=== PATIENT | female | born 1985 | race African-American/Black ===

== ENCOUNTER 2016-05-31 16:33 | Emergency (ER) | payer OTHER ==
[~2016-05-31] VITALS: Ht 170.2 cm; Wt 95.0 kg
[~2016-05-31 16:33] MED LIST: ALPR.25 PO; ATEN25TA PO; PROM25TA5 PO; ZANT150T2 PO
[2016-05-31 16:35] VITALS: BP 134/70; PULSE 70; RESP 14; TEMP 98.3; O2SAT 99
--- NOTE | 2016-05-31 18:04 | PD ---
HPI Chief Complaint: Pain: Acute or Chronic Time Seen by Provider: 18:04 Travel History International Travel<30 days: No Contact w/Intl Traveler<30days: No Traveled to known affect area: No History of Present Illness HPI 30-year-old female presents to the emergency department for evaluation of left ankle pain is been ongoing for 2 months. She denies any traumatic injury, but states she runs a lot. She states she saw her primary care physician who gave her ibuprofen and an ultrasound of her Achilles tendon. She was told she had small tears in her Achilles tendon and to follow-up with orthopedist. However, she has not yet followed up with an orthopedist. The patient denies any new or recent injury. No fevers or chills. She states that the pain has been worsening over the past 2 months. PFSH Past Medical History Heart Rhythm Problems: Yes (SVT X 2 YRS) Cardiovascular Problems: Yes (HTN) Hypertension: Yes Thyroid Disease: Yes (Hyperthyroidism) ?: Not LMP: CURRENTLY ON : 2 Para: 3 Tubal Ligation: Yes Past Surgical History Section: Yes (X 2) Social History Alcohol Use: Yes (Occasionally) Tobacco Use: Yes (2 PER WEEK) Substance Use: No Allergies-Medications (Allergen,Severity, Reaction): Coded Allergies: No Known Allergies (Unverified , 05/31/16) Reported Meds & Prescriptions Reported Meds & Active Scripts Active Phenergan (Promethazine HCl) 25 Mg Tab 25 Mg PO Q6H PRN Zantac (Ranitidine HCl) 150 Mg Tab 150 Mg PO BID Reported Xanax (Alprazolam) 0.25 Mg Tab 0.25 Mg PO Q6H PRN Atenolol 25 Mg Tab 25 Mg PO DAILY Review of Systems Except as stated in HPI: all other systems reviewed are Neg Physical Exam Narrative GENERAL: Well-developed well-nourished female patient, ambulatory. Afebrile. SKIN: Warm and dry. HEAD: Normocephalic. Atraumatic. EYES: No scleral icterus. No injection or drainage. NECK: Supple, trachea midline. No JVD or lymphadenopathy. CARDIOVASCULAR: Regular rate and rhythm without murmurs, gallops, or rubs. Left pedal pulse 2+. RESPIRATORY: Breath sounds equal bilaterally. No accessory muscle use. Lungs sounds clear to auscultation. GASTROINTESTINAL: Abdomen soft, non-tender, nondistended. MUSCULOSKELETAL: No cyanosis, or edema. Patient has tenderness over left posterior ankle. There is no evidence of Achilles tendon rupture. Freeman's test is negative. No other tenderness over ankle or foot. BACK: Nontender without obvious deformity. No CVA tenderness. Data Data Last Documented VS Vital Signs Date Time Temp Pulse Resp B/P Pulse Ox O2 Delivery O2 Flow Rate FiO2 05/31/16 16:35 98.3 70 14 134/70 99 Orders Splint Or Brace Apply/Monitor (05/31/16 18:03) Crutches (05/31/16 18:03) MDM Medical Decision Making Medical Screen Exam Complete: Yes Emergency Medical Condition: Yes Medical Record Reviewed: Yes Differential Diagnosis Achilles tendon tear versus sprain versus fracture Narrative Course 30-year-old female presents to the emergency department for evaluation of left ankle pain for 2 months. She was told that she had some small tears by her primary care physician she needed to follow-up with orthopedist. However, she has not yet followed up with an orthopedist. She denies any new symptoms. There is no evidence of Achilles tendon rupture and Freeman's test is negative. I provided the patient with an Justino bandage and crutches. I structurally to follow-up with orthopedist. I'll give her the name and number of our orthopedist supervisor blood donor recruiters. I will discharge her with a prescription for diclofenac. She is to return for any acute worsening of symptoms. The patient was discharged in stable condition with instructions, including return instructions and follow up instructions. Diagnosis Primary Impression: Ankle pain, left Qualified Code: M25.572 - Acute left ankle pain Referrals: Dhaval Dobson MD call for appointment Patient Instructions: Ankle Sprain (ED), General Instructions Additional Instructions: Wear Justino bandage and use crutches as needed for support. Take diclofenac as directed as needed with food for pain. Do not take with other anti-inflammatories including ibuprofen and naproxen. Ice for 20 minutes 4-5 times daily. Follow-up with an orthopedist. Dr. Dobson is our orthopedist on-call today. Return to the emergency department for any acute worsening of symptoms. Med/Other Pt SpecificInfo: Prescription(s) given Scripts Diclofenac Potassium 50 Mg Tab50 Mg PO TID PRN (PAIN SCALE 1 TO 10) #21 TAB Ref 0 Prov:Nanda Branch 05/31/16 Disposition: 01 DISCHARGE HOME Condition: Stable Nanda Branch May 31, 2016 18:04
[2016-05-31] MEDS ORDERED: DICL50TA PO (18:17)
== END 2016-05-31 19:06 | disposition home or self-care (01) ==
LOC: NEPB 16:33
DX: M25.572 Pain in left ankle and joints of left foot (principal); I10 Essential (primary) hypertension
CPT/HCPCS: 99283; E0113

== ENCOUNTER 2016-09-02 03:21 | Emergency (ER) | payer OTHER ==
[~2016-09-02] VITALS: Ht 172.7 cm; Wt 95.0 kg
[~2016-09-02 03:21] MED LIST changes: +DICL50TA PO
[2016-09-02] MEDS ORDERED: SODIUM CHLORIDE 0.9% FLUSH 10 ML FLUSH IVF PRN (03:30)
[2016-09-02 03:37] VITALS: BP 136/65; PULSE 101; RESP 16; TEMP 99.2; O2SAT 100
--- NOTE | 2016-09-02 03:45 | PD ---
HPI Chief Complaint: Cardiac Complaint Time Seen by Provider: 03:39 Travel History International Travel<30 days: No Contact w/Intl Traveler<30days: No Traveled to known affect area: No History of Present Illness HPI Patient's 30-year-old female presents emergency department for evaluation of palpitations. Patient states it started 3 hours prior to arrival, she had several episodes lasting 5 minutes in duration and then resolving and returning. She denies any shortness of breath but states she had chest pressure when the palpitations were occurring. She denies any chest pain or pressure at this time. She denies any nausea, vomiting, headache, dysuria, abdominal pain. She denies any caffeine intake, she did have some alcohol this afternoon. Patient has a history of SVT, she is currently on atenolol 25 mg daily. Her past medical history is also significant for hypertension. She denies any tobacco use or illicit drug use. She also reports a distant thyroid disorder stating that her thyroid was overactive. She is not on any medications currently and does not know if her thyroid has been evaluated recently. PFSH Past Medical History Heart Rhythm Problems: Yes (SVT X 2 YRS) Hypertension: Yes Thyroid Disease: Yes (Hyperthyroidism) : 2 Para: 3 Tubal Ligation: Yes Past Surgical History Section: Yes (X 2) Other Surgery: Yes (bilateral tubal ligation) Social History Alcohol Use: Yes (Occasionally) Tobacco Use: Yes (2 PER WEEK) Substance Use: No Allergies-Medications (Allergen,Severity, Reaction): Coded Allergies: No Known Allergies (Unverified , 09/02/16) Reported Meds & Prescriptions Reported Meds & Active Scripts Active Reported Xanax (Alprazolam) 0.25 Mg Tab 0.25 Mg PO Q6H PRN Atenolol 25 Mg Tab 25 Mg PO DAILY Review of Systems Except as stated in HPI: all other systems reviewed are Neg General / Constitutional: No: Fever Eyes: No: Blurred Vision HENT: No: Headaches, Lightheadedness Cardiovascular: Positive: Chest Pain or Discomfort, Palpitations Respiratory: No: Shortness of Breath Gastrointestinal: No: Nausea, Abdominal Pain Neurologic: No: Weakness, Dizziness, Syncope Physical Exam Narrative GENERAL: Well-developed, well-nourished, alert female. Resting comfortably in no acute distress. SKIN: Focused skin assessment warm/dry. HEAD: Atraumatic. Normocephalic. EYES: Pupils equal and round. No scleral icterus. No injection or drainage. ENT: No nasal bleeding or discharge. Mucous membranes pink and moist. NECK: Trachea midline. No JVD. CARDIOVASCULAR: Regular rate and rhythm. 1/6 systolic murmur appreciated. RESPIRATORY: No accessory muscle use. Clear to auscultation. Breath sounds equal bilaterally. GASTROINTESTINAL: Abdomen soft, non-tender, nondistended. Hepatic and splenic margins not palpable. MUSCULOSKELETAL: No obvious deformities. No clubbing. No cyanosis. No edema. NEUROLOGICAL: Awake and alert. No obvious cranial nerve deficits. Motor grossly within normal limits. Normal speech. PSYCHIATRIC: Appropriate mood and affect; insight and judgment normal. Data Data Last Documented VS Vital Signs Date Time Temp Pulse Resp B/P Pulse Ox O2 Delivery O2 Flow Rate FiO2 09/02/16 03:46 98 09/02/16 03:37 99.2 16 136/65 100 Room Air Orders Electrocardiogram (09/02/16 03:27) Ckmb (Isoenzyme) Profile (09/02/16 03:27) Complete Blood Count With Diff (09/02/16 03:27) Comprehensive Metabolic Panel (09/02/16 03:27) Magnesium (Mg) (09/02/16 03:27) Prothrombin Time / Inr (Pt) (09/02/16 03:27) Act Partial Throm Time (Ptt) (09/02/16 03:27) Troponin I (09/02/16 03:27) Chest, Single Ap (09/02/16 03:27) Ecg Monitoring (09/02/16 03:27) Iv Access Insert/Monitor (09/02/16 03:27) Oximetry (09/02/16 03:27) Oxygen Administration (09/02/16 03:27) Sodium Chloride 0.9% Flush (Ns Flush) (09/02/16 03:30) Thyroid Stimulating Hormone (09/02/16 03:27) Free Thyroxine (T4) (09/02/16 03:27) Ed Urine Pregnancytest Poc (09/02/16 03:30) CKMB (09/02/16 03:50) CKMB% (09/02/16 03:50) Labs Laboratory Tests Test 09/02/16 03:50 White Blood Count 6.4 TH/MM3 Red Blood Count 4.28 MIL/MM3 Hemoglobin 12.7 GM/DL Hematocrit 36.6 % Mean Corpuscular Volume 85.6 FL Mean Corpuscular Hemoglobin 29.7 PG Mean Corpuscular Hemoglobin 34.7 % Concent Red Cell Distribution Width 13.5 % Platelet Count 224 TH/MM3 Mean Platelet Volume 9.5 FL Neutrophils (%) (Auto) 46.2 % Lymphocytes (%) (Auto) 39.1 % Monocytes (%) (Auto) 13.1 % Eosinophils (%) (Auto) 1.2 % Basophils (%) (Auto) 0.4 % Neutrophils # (Auto) 3.0 TH/MM3 Lymphocytes # (Auto) 2.5 TH/MM3 Monocytes # (Auto) 0.8 TH/MM3 Eosinophils # (Auto) 0.1 TH/MM3 Basophils # (Auto) 0.0 TH/MM3 CBC Comment DIFF FINAL Differential Comment Prothrombin Time 11.0 SEC Prothromb Time International 1.0 RATIO Ratio Activated Partial 27.3 SEC Thromboplast Time Sodium Level 142 MEQ/L Potassium Level 3.6 MEQ/L Chloride Level 109 MEQ/L Carbon Dioxide Level 25.8 MEQ/L Anion Gap 7 MEQ/L Blood Urea Nitrogen 7 MG/DL Creatinine 0.78 MG/DL Estimat Glomerular Filtration 106 ML/MIN Rate Random Glucose 94 MG/DL Calcium Level 8.7 MG/DL Magnesium Level 2.1 MG/DL Total Bilirubin 0.3 MG/DL Aspartate Amino Transf 13 U/L (AST/SGOT) Alanine Aminotransferase 18 U/L (ALT/SGPT) Alkaline Phosphatase 73 U/L Total Creatine Kinase 167 U/L Creatine Kinase MB 2.0 NG/ML Troponin I LESS THAN 0.02 NG/ML Total Protein 7.6 GM/DL Albumin 3.8 GM/DL Free Thyroxine 1.05 NG/DL Thyroid Stimulating Hormone 1.780 uIU/ML [address] [place] [address] Medical Decision Making Medical Screen Exam Complete: Yes Emergency Medical Condition: Yes Interpretation(s) Last Impressions Chest X-Ray 09/02/16 0327 Signed Impressions: Service Date/Time: Friday, September 02, 2016 03:40 - CONCLUSION: No evidence of acute cardiopulmonary disease. Perdo Garces MD Laboratory Tests Test 09/02/16 03:50 White Blood Count 6.4 TH/MM3 Red Blood Count 4.28 MIL/MM3 Hemoglobin 12.7 GM/DL Hematocrit 36.6 % Mean Corpuscular Volume 85.6 FL Mean Corpuscular Hemoglobin 29.7 PG Mean Corpuscular Hemoglobin 34.7 % Concent Red Cell Distribution Width 13.5 % Platelet Count 224 TH/MM3 Mean Platelet Volume 9.5 FL Neutrophils (%) (Auto) 46.2 % Lymphocytes (%) (Auto) 39.1 % Monocytes (%) (Auto) 13.1 % Eosinophils (%) (Auto) 1.2 % Basophils (%) (Auto) 0.4 % Neutrophils # (Auto) 3.0 TH/MM3 Lymphocytes # (Auto) 2.5 TH/MM3 Monocytes # (Auto) 0.8 TH/MM3 Eosinophils # (Auto) 0.1 TH/MM3 Basophils # (Auto) 0.0 TH/MM3 CBC Comment DIFF FINAL Differential Comment Prothrombin Time 11.0 SEC Prothromb Time International 1.0 RATIO Ratio Activated Partial 27.3 SEC Thromboplast Time Sodium Level 142 MEQ/L Potassium Level 3.6 MEQ/L Chloride Level 109 MEQ/L Carbon Dioxide Level 25.8 MEQ/L Anion Gap 7 MEQ/L Blood Urea Nitrogen 7 MG/DL Creatinine 0.78 MG/DL Estimat Glomerular Filtration 106 ML/MIN Rate Random Glucose 94 MG/DL Calcium Level 8.7 MG/DL Magnesium Level 2.1 MG/DL Total Bilirubin 0.3 MG/DL Aspartate Amino Transf 13 U/L (AST/SGOT) Alanine Aminotransferase 18 U/L (ALT/SGPT) Alkaline Phosphatase 73 U/L Total Creatine Kinase 167 U/L Creatine Kinase MB 2.0 NG/ML Troponin I LESS THAN 0.02 NG/ML Total Protein 7.6 GM/DL Albumin 3.8 GM/DL Free Thyroxine 1.05 NG/DL Thyroid Stimulating Hormone 1.780 uIU/ML 3rd Gen Vital Signs Date Time Temp Pulse Resp B/P Pulse Ox O2 Delivery O2 Flow Rate FiO2 09/02/16 03:37 99.2 101 16 136/65 100 Room Air Differential Diagnosis SVT versus electrolyte abnormality versus thyroid disorder versus other Narrative Course Patient is a 30-year-old female presenting to the emergency department for evaluation of palpitations. Labs and imaging ordered and pending. IV access established, patient placed on telemetry monitoring and continuous pulse oximetry. Chest x-ray shows no acute disease EKG is so sinus rhythm with a rate of 89, nonspecific T-wave abnormality CBC is unremarkable Coags are unremarkable Vital signs are stable. Troponin is less than 0.02 Thyroid function is unremarkable Chemistry is unremarkable Patient's vital signs have been stable, patient will be discharged home with close follow-up with her primary care provider. She was given strict return precautions. She is advised to maintain adequate fluid intake, avoid caffeinated products. She will continue atenolol as previously prescribed. Patient is stable for discharge. Diagnosis Primary Impression: Heart palpitations Referrals: Primary Care Physician Patient Instructions: General Instructions, Palpitations (ED) Additional Instructions: Continue atenolol as previously prescribed Follow-up with her primary doctor Maintain adequate fluid intake, avoid caffeine and caffeinated products Return to emergency department for any new or worsening symptoms Med/Other Pt SpecificInfo: No Change to Meds Disposition: 01 DISCHARGE HOME Condition: Stable Kendra Stallworth Sep 02, 2016 03:44
--- NOTE | 2016-09-02 03:55 | RADRPT ---
EXAM DATE/TIME: 09/02/2016 03:40 [facility] COMPARISON: CHEST PA & LAT, December 30, 2015, 3:34. INDICATIONS : Pt having chest pain x 1 day. MEDICAL HISTORY : None. SURGICAL HISTORY : section. ENCOUNTER: Initial ACUITY: 1 day PAIN SCORE: 6/10 LOCATION: Bilateral chest FINDINGS: A single view of the chest demonstrates the lungs to be symmetrically aerated without evidence of mas s, infiltrate or effusion. The cardiomediastinal contours are unremarkable. Osseous structures are intact. CONCLUSION: No evidence of acute cardiopulmonary disease. Pedro Garces MD on September 02, 2016 at 3:53 Board Certified Radiologist. This report was verified electronically.
[2016-09-02 04:04] LABS: BASOPHIL % 0.4 % (0.0-2.0); EOSINOPHIL # 0.1 TH/MM3 (0-0.4); EOSINOPHIL % 1.2 % (0.0-4.0); HEMATOCRIT 36.6 % (35.0-46.0); HEMO FLAGS DIFF FINAL; LYMPH % 39.1 % (9.0-44.0); LYMPHOCYTE # 2.5 TH/MM3 (1.0-4.8); MEAN CELL VOLUME 85.6 FL (80.0-100.0); MEAN CORPUSCULAR HEMOGLOBIN 29.7 PG (27.0-34.0); MEAN CORPUSCULAR HGB CONC 34.7 % (32.0-36.0); MONO % 13.1 % (0.0-8.0); NEUT % 46.2 % (16.0-70.0); PLATELET COUNT 224 TH/MM3 (150-450); RED BLOOD COUNT 4.28 MIL/MM3 (4.00-5.30); RED CELL DISTRIBUTION WIDTH 13.5 % (11.6-17.2); WHITE BLOOD COUNT 6.4 TH/MM3 (4.0-11.0)
[2016-09-02 04:13] LABS: APTT (PATIENT) 27.3 SEC (24.3-30.1)
[2016-09-02 04:31] LABS: ALT (GPT) 18 U/L (10-53); ANION GAP 7 MEQ/L (5-15); AST (GOT) 13 U/L (15-37); BICARBONATE 25.8 MEQ/L (21.0-32.0); BLOOD UREA NITROGEN 7 MG/DL (7-18); CHLORIDE 109 MEQ/L (98-107); GLOMERULAR FILTRATION RATE 106 ML/MIN (>89); MAGNESIUM 2.1 MG/DL (1.5-2.5); POTASSIUM 3.6 MEQ/L (3.5-5.1); SODIUM (NA) 142 MEQ/L (136-145)
[2016-09-02 04:39] LABS: ALKALINE PHOSPHATASE 73 U/L (45-117); CREATINE KINASE 167 U/L (26-192); FREE T4 1.05 NG/DL (0.76-1.46); TOTAL BILIRUBIN ADULT 0.3 MG/DL (0.2-1.0)
[2016-09-02 05:20] VITALS: BP 126/67
--- NOTE | 2016-09-02 17:32 | EKG ---
Date Performed: 09/02/2016 Time Performed: 03:44:08 PTAGE: 30 years EKG: Sinus rhythm POSSIBLE LEFT ATRIAL ENLARGEMENT POSSIBLE RIGHT VENTRICULAR CONDUCTION DELAY NONSPECIFIC T-WAVE ABNO RMALITY BORDERLINE ECG PREVIOUS TRACING : 03/01/2016 06.11 Compared to prior tracing no significant change DOCTOR: Haris Rossi Interpretating Date/Time 09/02/2016 17:30:09
== END 2016-09-02 05:28 | disposition home or self-care (01) ==
LOC: NEPC 03:21
DX: R00.2 Palpitations (principal); I10 Essential (primary) hypertension; F17.200 Nicotine dependence, unspecified, uncomplicated; I47.1 Supraventricular tachycardia; E05.90 Thyrotoxicosis, unspecified without thyrotoxic crisis or storm; Z79.899 Other long term (current) drug therapy
CPT/HCPCS: 71010; 80053; 82550; 82552; 83735; 84439; 84443; 84484; 84703; 85025; 85610; 85730; 93005; 99285

== ENCOUNTER 2017-04-02 22:51 | Emergency (ER) | payer OTHER ==
[~2017-04-02] VITALS: Ht 170.2 cm; Wt 95.0 kg
[~2017-04-02 22:51] MED LIST changes: -DICL50TA PO; -PROM25TA5 PO; -ZANT150T2 PO
[2017-04-02 22:53] VITALS: BP 135/63; PULSE 71; RESP 16; TEMP 98.1; O2SAT 100
--- NOTE | 2017-04-02 23:07 | PD ---
HPI Chief Complaint: Back/ Neck Pain or Injury Time Seen by Provider: 23:06 Travel History International Travel<30 days: No Contact w/Intl Traveler<30days: No Traveled to known affect area: No History of Present Illness HPI 31-year-old female presents emergency department for evaluation of low back pain began about 3-1/2 hours ago. Patient states this started while she was standing in her kitchen, cooking dinner. It is in her lower back. It does not radiate anywhere. She denies any focal deficits or weakness. No saddle paresthesia. She has had no loss of bowel or bladder. Patient denies any urinary symptoms. States that this happens sometimes when she is on her feet for too long. Pain is an aching, 6 out of 10. She has not taken anything for. She has no other symptoms to report. PFSH Past Medical History Heart Rhythm Problems: Yes (SVT) Diminished Hearing: No Hypertension: Yes Thyroid Disease: Yes (HX Hyperthyroidism) Tetanus Vaccination: Unknown Influenza Vaccination: No ?: Not LMP: 03/27/17 : 2 Para: 3 Tubal Ligation: Yes Past Surgical History Surgical History: No Previous Surgery Section: Yes (X 2) Other Surgery: Yes (bilateral tubal ligation) Social History Alcohol Use: No Tobacco Use: No Substance Use: No Allergies-Medications (Allergen,Severity, Reaction): Coded Allergies: No Known Allergies (Unverified Adverse Reaction, Unknown, 04/02/17) Reported Meds & Prescriptions Reported Meds & Active Scripts Active Reported Xanax (Alprazolam) 0.25 Mg Tab 0.25 Mg PO Q6H PRN Atenolol 25 Mg Tab 25 Mg PO DAILY Review of Systems Except as stated in HPI: all other systems reviewed are Neg Physical Exam Narrative GENERAL: Well-nourished, well-developed female patient in no acute distress. SKIN: Focused skin assessment warm/dry. HEAD: Normocephalic. EYES: No scleral icterus. No injection or drainage. NECK: Supple, trachea midline. No JVD or lymphadenopathy. CARDIOVASCULAR: Regular rate and rhythm without murmurs, gallops, or rubs. RESPIRATORY: Breath sounds equal bilaterally. No accessory muscle use. GASTROINTESTINAL: Abdomen soft, non-tender, nondistended. MUSCULOSKELETAL: No cyanosis, or edema. BACK: Low midline tenderness and without obvious deformity. Tenderness in the lumbars paraspinous musculature. No CVA tenderness. Data Data Last Documented VS Vital Signs Date Time Temp Pulse Resp B/P (MAP) Pulse Ox O2 Delivery O2 Flow Rate FiO2 04/02/17 23:18 04/02/17 22:53 98.1 71 16 100 Room Air Orders Orders Ibuprofen (Motrin) (04/02/17 23:15) Ed Discharge Order (04/02/17 23:17) MDM Medical Decision Making Medical Screen Exam Complete: Yes Emergency Medical Condition: Yes Medical Record Reviewed: Yes Differential Diagnosis Lumbar strain versus discogenic pain versus radiculopathy versus UTI versus sciatica Narrative Course 31-year-old female presents to emergency department for evaluation of low back pain. Patient appears without distress. Vital signs are stable. She does have tenderness in the lumbar paraspinous musculature, otherwise exam is benign. I have encouraged patient to strengthen her core muscle to help with her back pain. Also encouraged follow-up with primary care provider. Patient is given 1 ibuprofen here in emergency department. She agrees to return immediately with any acute worsening symptoms. Diagnosis Primary Impression: Low back pain Qualified Codes: M54.5 - Low back pain Referrals: Primary Care Physician Patient Instructions: Acute Low Back Pain (ED), General Instructions Additional Instructions: Ice and/or warm moist heat may help to alleviate symptoms Follow-up the primary care provider Avoid activity that exacerbates pain Avoid prolonged bedrest Ibuprofen as directed on the package as needed for pain Return immediately with any acute worsening symptoms Med/Other Pt SpecificInfo: No Change to Meds Disposition: 01 DISCHARGE HOME Condition: Stable Cristy Brown Apr 02, 2017 23:07
[2017-04-02] MEDS ORDERED: IBUPROFEN 800 MG TAB PO ONE (23:15)
== END 2017-04-02 23:49 | disposition home or self-care (01) ==
LOC: NEPD 22:51
DX: M54.5 Low back pain (principal); I10 Essential (primary) hypertension; E05.90 Thyrotoxicosis, unspecified without thyrotoxic crisis or storm; Z79.899 Other long term (current) drug therapy
CPT/HCPCS: 99282